=== PATIENT | female | born 2000 | race Caucasian/White ===

== ENCOUNTER 2024-12-18 13:14 | Emergency (ER) | payer MEDICAID ==
[~2024-12-18] VITALS: Ht 172.7 cm; Wt 106.6 kg
[2024-12-18 14:21] LABS: RAPID GROUP A STREP negative (NEGATIVE)
[2024-12-18 14:28] LABS: COVID19 (SARS ANTIGEN RAPID) PRESUMPTIVE NEGATIVE (NEGATIVE); INFLUENZA TYPE A Negative For Type A (NEGATIVE); INFLUENZA TYPE B Negative For Type B (NEGATIVE)
[2024-12-18] MEDS ORDERED: LORA10TA7 PO (15:55)
[2024-12-18] MEDS ORDERED: PRED10TA3 PO (15:55)
--- NOTE | 2024-12-18 15:56 | ERN ---
General Chief Complaint: Sore Throat Stated Complaint: SORETHROAT Time Seen by MD: 13:16 Time Seen by Midlevel: 13:16 Source: patient History of Present Illness Initial Comments 24-year-old female who presents to the emergency department due to sore throat onset last night. Patient reports she was out eating water burger and had some drinks at a bar initiated with sore throat, and sensation of a closing. Patient reports around 3:00 a.m. she had a swollen lip for which she took Benadryl. States she noticed a rash to the abdomen. Denies any fever, shortness of breath, difficulty breathing, abdominal pain, cough, congestion or further associated symptoms. Patient denies any known allergies. Denies any new clothing, food, drinks, or skin products. Denies significant past medical history. Allergies: Coded Allergies: No Known Drug Allergies (Unverified Allergy, Unknown, 12/18/24) Home Meds Active Scripts Prednisone (Prednisone) 10 Mg Tablet, 1 TAB PO DAILY for 5 Days, #5 TAB 0 Refills Prov:NATALIE ARRIAGA 12/18/24 Loratadine (Loratadine) 10 Mg Tablet, 1 TAB PO DAILY for 30 Days, #30 TAB 0 Refills Prov:NATALIE ARRIAGA 12/18/24 Past Medical History Past Medical History: No Pertinent History Past Surgical History: Other Surgical History Other: BACK Female( History) LMP: December 15, 2024 : 1 Para: 0 Aborts: 1 ROS Dictation Constitutional: Negative for fever,chills, and weight loss Eyes: Negative for injury, pain,redness, and discharge ENT: Positive for sore throat, positive for lip swelling Negative for injury,pain or swelling Cardiovascular: Negative for chest pain, palpitations, and edema Respiratory: Negative for shortness of breath, cough, and wheezing, Abdomen/GI: Negative for abdominal pain, nausea, vomiting, diarrhea, and constipation Back: Negative for injury and pain : Negative for painful urination, bleeding or discharge MS/Extremity: Negative for injury and deformity Skin: Positive for rash Negative for rash, and discoloration Neuro: Negative for headache, weakness, numbness, tingling, and seizure Psych: Negative for suicide ideation, homicidal ideation, and hallucinations Physical Exam Physical Exam Dictation General: awake, alert, no acute distress Head/Face: Normocephalic, atraumatic Eyes: PERRL, EOMI, normal conjunctiva ENT: oral cavity clear, oral mucosa moist, no tonsillar swelling Neck: Supple, normal range of motion Cardiovascular: RRR, normal S1/S2 Respiratory: CTAB, no respiratory distress, no rales or wheezes Abdomen: Soft, non-tender, non-distended, no guarding or rebound. Skin: Warm, dry, normal turgor, no rash. Erythematous maculopapular rash noted to the abdomen and back MS/Extremity: Pulses equal, no cyanosis, neurovascular intact, FROM Neuro: COAx4, GCS 15, strength 5/5, CN 2-12 intact, normal cerebellar exam, normal gait Psych: Normal behavior, mood, and affect normal Results Laboratory and Microbiology Lab and Micro Result Laboratory Tests Test 12/18/24 13:50 Influenza Type A Antigen Negative For Type A Influenza Type B Antigen Negative For Type B SARS-CoV-2 Antigen (Rapid) PRESUMPTIVE NEGATIVE Group A Streptococcus Rapid negative (NEGATIVE) Labs Reviewed?: Yes MDM MDM: Differential diagnosis: Allergic reaction, strep, Rationale:24-year-old female who presents to the emergency department due to sore throat onset last night. Patient reports she was out eating whataburger and had some drinks at a bar initiated with sore throat, and sensation of a closing. Patient reports around 3:00 a.m. she had a swollen lip for which she took Benadryl. States she noticed a rash to the abdomen. Denies any fever, shortness of breath, difficulty breathing, abdominal pain, cough, congestion or further associated symptoms. Patient denies any known allergies. Denies any new clothing, food, drinks, or skin products. Denies significant past medical history. Swollen lip resolved last night after Benadryl, denies any current difficulty breathing, difficulty swallowing.Per physical examination oropharynx is normal, no lip swelling, erythematous maculopapular rash noted to the abdomen and back. SARs, influenza, strep negative. Solu-Medrol, famotidine, Benadryl administered in the ED. Patient was educated on findings and diagnosis. Loratadine and steroids prescribed for outpatient treatment. Advised to follow up with PCP. Return to the emergency department if any worsening symptoms. Patient verbalized understanding. Patient stable for discharge. There are no social concerns with this patient. I independently interpreted the test that were performed, results were reviewed by me and considered findings on radiology if ordered. Medical management and examination interpretation discussions were had by me with other qualified healthcare professionals as indicated for the patient's care. ED Course Orders Procedure Category Date Status Time Covid19 (Sars Antigen LAB 12/18/24 Complete Rapid) 13:16 Influenza Type A & B, LAB 12/18/24 Complete Rapid 13:16 Rapid (Group A Strep) LAB 12/18/24 Complete 13:16 Methylprednisolone PHA 12/18/24 Complete Succ 125mg (Solu-Medr 15:30 Famotidine 20mg Tab PHA 12/18/24 Complete (Pepcid 20mg Tab) 15:30 Diphenhydramine Hcl PHA 12/18/24 Complete (Benadryl Elixir) 15:30 Current Medications Medications (Trade) Dose Ordered Sig/Erin Route PRN Reason Start Time Stop Time Status Last Admin Dose Admin Diphenhydramine HCl (BENAdryl ELIXIR) 25 mg ONCE ONCE PO 12/18/24 15:30 12/18/24 15:31 DC 12/18/24 16:11 Famotidine (Pepcid 20mg Tab) 20 mg ONCE ONCE PO 12/18/24 15:30 12/18/24 15:31 DC 12/18/24 16:11 Methylprednisolone Sodium Succinate (Solu-medROL 125MG) 120 mg ONCE ONCE IM 12/18/24 15:30 12/18/24 15:31 DC 12/18/24 16:11 Vital Signs Date Time Temp Pulse Resp B/P (MAP) Pulse Ox O2 Delivery O2 Flow Rate FiO2 12/18/24 16:18 97.3 75 20 124/81 99 Room Air* 0 21 12/18/24 14:02 97.3 80 20 120/88 98 Room Air* 0 21 12/18/24 13:55 97.3 80 20 120/88 99 0 DX & DISP Disposition: Discharge Departure Impression: Primary Impression: Sore throat Additional Impression: Allergic reaction Condition: Stable Scripts Prednisone (Prednisone) 10 Mg Tablet 1 TAB PO DAILY for 5 Days, #5 TAB 0 Refills Prov: NATALIE ARRIAGA 12/18/24 Loratadine (Loratadine) 10 Mg Tablet 1 TAB PO DAILY for 30 Days, #30 TAB 0 Refills Prov: NATALIE ARRIAGA 12/18/24 Additional Instructions: Discharge home. Rest. Follow up with primary care DrYoni in 24 hours. Return to the ER for any acute changes or worsening symptoms. If any medications were prescribed take as directed. Okay to continue home medications unless otherwise discussed during your visit in the emergency room today. Patient was also advised to follow-up with primary care physician in 1 to 2 days for continued monitoring. Referrals: NILS LUCAS (PCP) I performed the substantive portion of the visit. I have reviewed and personally made and approve the management plan that is documented in the notes by myself or the KAR[facility]. I acknowledge full responsibility for the patient's management plan. NATALIE ARRIAGA December 18, 2024 15:56
[2024-12-18] MEDS: FAMOTIDINE 20MG TAB PO ONE (16:11)
[2024-12-18] MEDS: DiphenhydrAMINE HCL 25 MG/10 ML ELIXIR UDCUP PO ONE (16:11)
[2024-12-18] MEDS: Solu-medROL 125MG VIAL IM ONE (16:11)
[2024-12-18 16:18] VITALS: BP 124/81; PULSE 75; RESP 20; TEMP 97.3; O2SAT 99
== END 2024-12-18 16:19 | disposition home or self-care (01) ==
LOC: EDH 13:14
DX: T78.40XA Allergy, unspecified, initial encounter (principal); J02.9 Acute pharyngitis, unspecified; Z79.52 Long term (current) use of systemic steroids; Z20.822 Contact with and (suspected) exposure to COVID-19; X58.XXXA Exposure to other specified factors, initial encounter
CPT/HCPCS: 99283; 87426; 87880; 87804 ×2; 96372; J2919